=== PATIENT | male | born 1965 | race Caucasian/White ===

== ENCOUNTER 2023-05-31 14:32 | Outpatient (AMB) | payer BC, SELFPAY ==
[2023-05-31 14:34] VITALS: BP 164/100; PULSE 57; O2SAT 98; BMI 35.2
--- NOTE | 2023-05-31 14:34 | HO.NEPHOV ---
HPI HPI Comments History of Present Illness Details I had the privilege of seeing Markie in follow-up of his chronic kidney disease and hypertension. He has a longstanding diabetic and his blood sugar control had been quite fluctuant. He has not lost any significant weight. Ever since he had the cardiac surgery, he does not have any chest pain, shortness of breath, paroxysmal nocturnal dyspnea, orthopnea or orthostatic symptoms. He claims to be compliant with his medications. He is on Jardiance . He maintains good hydration. He does not take excessive nonsteroidal anti-inflammatories. He does not have any epistaxis, photosensitivity, hematuria, nephrolithiasis, flank pain. He feels well. [facility], [facility] Medical History (Updated 05/31/23 @ 15:03 by Keagan De La Torre MD) Obesity Long-term insulin use Hypertriglyceridemia Hypertension Hypercholesteremia Erectile dysfunction Diabetic retinopathy Diabetes mellitus, type II, insulin dependent Depression Coronary atherosclerosis due to calcified coronary lesion Chronic kidney disease, stage 3a Blind right eye Anxiety Allergic rhinitis ADHD (attention deficit hyperactivity disorder) Surgical History S/P CABG x 5 History of bilateral inguinal hernia repair Vital Signs 05/31/23 14:34 Height 6 ft 3 in Weight 282 lb BMI 35.2 BP 164/100 H Blood Pressure Location Rt brachial Position Sitting Pulse 57 Pulse Source Pulse Oximeter Pulse Oximetry (%) 98 Oxygen Delivery Method Room Air Physical Exam Vital Signs: Last Vital Signs Pulse 57 05/31/23 14:34 BP 164/100 H 05/31/23 14:34 Pulse Ox 98 05/31/23 14:34 Oxygen Delivery Method Room Air 05/31/23 14:34 BMI result Body Mass Index 35.2 Const General: comfortable and no acute distress Orientation/consciousness: patient oriented x3 HEENT Head: Yes normocephalic Mouth: Normal oral and palatal mucosa present Neck Neck: Yes supple Resp Auscultation: clear to auscultation bilaterally Cardio Jugular venous distension: no JVD Rate: regular rate GI Palpation (GI): Soft to palpation Auscultation: normal bowel sounds General: Yes no CVA tenderness Back/Spine/Pelvis Back: no CVA tenderness Skin General skin exam: no rashes or lesions noted Neuro General: patient oriented x3 and moves all extremities Assessment & Plan Assessment & Plan (1) Hypertension: Code(s): I10 - Essential (primary) hypertension Qualifiers: Hypertension type: primary hypertension Qualified Code(s): I10 - Essential (primary) hypertension (2) CKD stage 3 secondary to diabetes: Code(s): E11.22 - Type 2 diabetes mellitus with diabetic chronic kidney disease; N18.30 - Chronic kidney disease, stage 3 unspecified Plan Markie has chronic kidney disease from diabetic nephropathy. He had progressive mild renal dysfunction over the years. His serum creatinine had been fair and stable. His blood sugar controls to be suboptimally controlled. His blood pressure has been at goal. He is on Jardiance . I put him back on ARB. His urine output is good. His volume status is optimal. He needs to lose weight. He does not have any cardiac symptoms. He he is on Crestor as well as omega-3. He should maintain good hydration and avoid nonsteroidal anti-inflammatories. I ordered follow-up blood work as well as urine studies. I discussed in detail about implications of suboptimally controlled blood sugar control and management strategies for CKD and hypertension. Further management is pending evolving data. Answered all questions. Follow-up appointment given. Orders: Orders Creatinine 05/31/23 E11.22 - Type 2 diabetes mellitus with diabetic chronic kidney disease, N18.30 - Chronic kidney disease, stage 3 unspecified, I10 - Essential (primary) hypertension Electrolytes 05/31/23 E11.22 - Type 2 diabetes mellitus with diabetic chronic kidney disease, N18.30 - Chronic kidney disease, stage 3 unspecified, I10 - Essential (primary) hypertension Blood Urea Nitrogen 05/31/23 E11.22 - Type 2 diabetes mellitus with diabetic chronic kidney disease, N18.30 - Chronic kidney disease, stage 3 unspecified, I10 - Essential (primary) hypertension Protein Creatinine Ratio, Ur 05/31/23 E11.22 - Type 2 diabetes mellitus with diabetic chronic kidney disease, N18.30 - Chronic kidney disease, stage 3 unspecified, I10 - Essential (primary) hypertension Medications: New losartan 25 mg PO DAILY 30 tabs 4RF 30 days Coding Level of Care Code New Pt Level 4 (79181) Diagnoses Primary hypertension I10 Hypertension type: primary hypertension CKD 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
== END 2023-05-31 15:11 | disposition home or self-care (01) ==
PROVIDERS: PCP Nurse Practitioner Family; Referring Provider Nurse Practitioner Family; Visit Provider Internal Medicine Nephrology
DX: I10 Essential (primary) hypertension (principal); E11.22 Type 2 diabetes mellitus with diabetic chronic kidney disease; N18.30 Chronic kidney disease, stage 3 unspecified
CPT/HCPCS: 99204

== ENCOUNTER → 2023-05-31 14:32 | Outpatient (BNVA) | payer BC, SELFPAY | PROVIDERS: PCP Nurse Practitioner Family; Referring Provider Nurse Practitioner Family; Visit Provider Internal Medicine Nephrology ==